=== PATIENT | male | born 1970 | race Caucasian/White ===

== ENCOUNTER 2019-06-17 11:12 | Outpatient (CLI) | payer OTHER, SELFPAY ==
--- NOTE | 2019-06-17 11:22 | XR_ITS ---
WS: [id number] CERVICAL SPINE 3 VIEWS HISTORY: MUSCLE SPASM, CERVICAL RADICULOPATHY, MUSCLE STRAIN COMPARISON: 10/06/2009 C4 and C5 retrolisthesis by just less than 2 mm. Mild disc space narrowing at C4-5, C5-6 and C6-7 wit h endplate osteophytes. No fractures. Bilateral masses of C1 and C2 are aligned odontoid is intact. Soft tissues are normal. XR/XR cervical spine 3V* [id number] IMPRESSION: 1. Minimal retrolisthesis of C4 and C5 with spondylitic changes and osteophyte s most significant at C4, C5 and C6. 2. No fracture.
== END 2019-06-17 11:13 | disposition home or self-care (01) ==
LOC: RADWPI 11:17
PROVIDERS: Family Provider Family Medicine; PCP Family Medicine; Visit Provider Family Medicine
DX: M62.838 Other muscle spasm (principal); M54.12 Radiculopathy, cervical region; M70.90 Unspecified soft tissue disorder related to use, overuse and pressure of unspecified site; M47.892 Other spondylosis, cervical region
CPT/HCPCS: 72040

== ENCOUNTER 2019-06-28 12:17 | Emergency (ER) | payer OTHER, SELFPAY ==
[2019-06-28 12:23] VITALS: BP 151/106; PULSE 101; RESP 16; TEMP 36.8; O2SAT 94; BMI 36.3
--- NOTE | 2019-06-28 12:41 | CT_ITS ---
WS: [id number] CT CERVICAL SPINE HISTORY: right arm radiculopathy, neck pain TECHNIQUE: Contiguous 2.5 mm axial imaging performed through the entire cervical spine. Sagittal and coronal reformats also performed. All CT scans at [facility] use at least one of these do se optimization techniques: automated exposure control; mA and/or kV adjustment per patient size (inc ludes targeted exams where dose is matched to clinical indication); or iterative reconstruction. DLP: 608.1 mGy.cm COMPARISON: 10/21/2007 C4 retrolisthesis by 2 mm. Small osteophytes extend posteriorly from C4 to C6. No fractures. Mild dis c space narrowing at C4-5 and C5-6. Craniocervical junction is normal. Lateral masses of C1 and C2 ar e aligned. Odontoid is intact. C2-C3: Shallow central disc protrusion. C3-C4: No stenosis. C4-C5: Osteophytic ridging encroaching upon the ventral thecal sac. Slightly greater osteophyte just to the LEFT of midline with moderate bilateral foraminal stenosis and central stenosis. C5-C6: Osteophytic ridging larger osteophyte on the RIGHT. Severe RIGHT foraminal stenosis and osteop hyte encroaching upon the RIGHT lateral thecal sac. C6-C7: Normal. C7-T1: Normal. Small air-fluid level in the LEFT maxillary sinus. CT/CT cervical spin wo con* [id number] IMPRESSION: 1. Severe RIGHT foraminal stenosis at C5-6 due to osteophyte disease. Mild enc roachment upon the ventral thecal sac. 2. Moderate bilateral foraminal stenosis and central stenosis at C4-5.
--- NOTE | 2019-06-28 12:42 | XR_ITS ---
WS: [id number] RIGHT SHOULDER: 2 VIEW(S) TECHNIQUE: Internal and external rotation. HISTORY: anterior shoulder pain COMPARISON: None available. Mild narrowing of the AC joint. Subcortical cyst in the distal clavicle. Mild narrowing of the glenohumeral joint with osteophytes at the humeral head. XR/XR shoulder RT min 2V* [id number] IMPRESSION: Mild AC joint and glenohumeral joint arthritis.
--- NOTE | 2019-06-28 12:53 | ED_ITS ---
HPI - General Adult General: Chief complaint: General Medical Stated complaint: Neck and right arm pain Time Seen by Provider: 06/28/19 12:25 History of Present Illness: HPI narrative: Patient is having radicular symptoms in his right arm. Did have a crick in his neck 2 weeks ago woke up with that went to Dr. Viveros's office got pain medicines and steroids. Neck pain is proved but his arm pain is not improved. Has went through Percocet and hydrocodone. And a muscle relaxer. Dr. Chirinos sent him over here today for evaluation because he has no other options for him presently. Patient does have what appear to be carpal tunnel type symptoms after further review MD complaint: Carpal tunnel right Onset (ago): week(s) Location: right and upper extremity Radiation: proximal Severity: severe Severity scale (1-10): 8 Quality: burning and aching Pain Consistency: constant Relieving factors: rest Exacerbating factors: movement Associated symptoms: Reports no associated symptoms; Deny chest pain, dyspnea, headache(s), nausea, rash or vomiting Review of Systems Narrative: I spoke with Dr. 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.) and muscle weakness (Right arm); Denies: neck pain (Neck did hurt originally but does not hurt now.) Skin/Breast: Denies: rash Neuro: Denies: headache Psych: Denies: anxiety or depression Semaj/Lymph: Denies: easy bruising PFSH ED PFSH: Social History Smoking and tobacco status: never smoked Physical Exam Const: COMMON NORMALS: no apparent distress, average body habitus and oriented x3 HENMT: COMMON NORMALS: normocephalic HEAD & SCALP: normal to inspection and normocephalic FACE & SINUS: normal facial exam Eye: COMMON NORMALS: conjunctivae normal GENERAL EYE: normal appearance of both eyes CONJUNCTIVA: Yes conjunctivae normal Neck/C-Spine: COMMON NORMALS: full ROM (Has good range of motion of his neck no tenderness to the scapula area or trapezius. Does have some pain in his anterior shoulder.) and no JVD Chest: COMMONS NORMALS: inspection of chest normal Resp: COMMON NORMALS: normal respiratory effort and clear to auscultation bilaterally AUSCULTATION: clear to auscultation bilaterally Cardio: COMMON NORMALS: no JVD, regular rate and regular rhythm RATE: regular rate RHYTHM: regular rhythm GI: COMMON NORMALS: normal to inspection, nondistended, normoactive bowel sounds Extremity: COMMON NORMALS: normal to inspection and full ROM Neuro: COMMON NORMALS: oriented x3 MOTOR EXAM: other (Tinel's and Phalen's positive on the right side for pain and increased numbness of the thumb and forefinger.) Course Vital Signs: Vital signs: Vital Signs Temperature 98.2 F 06/28/19 12:23 Pulse Rate 101 H 06/28/19 12:23 Respiratory Rate 16 06/28/19 12:23 Blood Pressure 151/106 06/28/19 12:23 Pulse Oximetry 94 06/28/19 12:23 Discharge Plan Discharge Condition: Stable Prescriptions: No Action phentermine [Adipex-P] 37.5 mg tablet 37.5 mg PO ONCE Qty: 30 RF: 0 Coding Level of Care Code ED Gas Distribution Supervisor for Keith Monique
[2019-06-28 14:04] VITALS: BP 122/91; PULSE 90; RESP 18; O2SAT 98
== END 2019-06-28 14:05 | disposition home or self-care (01) ==
LOC: ER 13:31
PROVIDERS: Emergency Provider Nurse Practitioner Family; Family Provider Family Medicine; PCP Family Medicine
DX: M48.02 Spinal stenosis, cervical region (principal); G56.01 Carpal tunnel syndrome, right upper limb
CPT/HCPCS: 12345; 72125; 73030; 99281; 99283

== ENCOUNTER → 2020-07-04 12:38 | Outpatient (BNVA) | payer BC, SELFPAY | PROVIDERS: Family Provider Family Medicine; PCP Family Medicine; Visit Provider Nurse Practitioner Family | DX: Z20.822 Contact with and (suspected) exposure to COVID-19 (principal) | CPT/HCPCS: 87635 ==

== ENCOUNTER → 2020-10-14 13:37 | Outpatient (BNVA) | payer BC, SELFPAY | PROVIDERS: Family Provider Family Medicine; PCP Family Medicine; Referring Provider Family Medicine; Visit Provider Specialist | DX: R20.0 Anesthesia of skin (principal); G56.03 Carpal tunnel syndrome, bilateral upper limbs | CPT/HCPCS: 73110 ==

== ENCOUNTER → 2020-10-20 14:09 | Outpatient (BNVA) | payer BC, SELFPAY | PROVIDERS: Family Provider Family Medicine; PCP Family Medicine; Visit Provider Specialist | DX: G56.21 Lesion of ulnar nerve, right upper limb (principal); G56.02 Carpal tunnel syndrome, left upper limb | CPT/HCPCS: 95910 ==

== ENCOUNTER → 2020-10-28 09:18 | Outpatient (BNVA) | payer BC, SELFPAY | PROVIDERS: Family Provider Family Medicine; PCP Family Medicine; Referring Provider Specialist; Visit Provider Specialist | DX: G56.21 Lesion of ulnar nerve, right upper limb (principal); G54.0 Brachial plexus disorders | CPT/HCPCS: 95860; 99202 ==

== ENCOUNTER → 2020-11-25 15:27 | Outpatient (BNVA) | payer BC, SELFPAY | PROVIDERS: Family Provider Family Medicine; PCP Family Medicine; Visit Provider Podiatrist Foot & Ankle Surgery | DX: M79.672 Pain in left foot (principal) | CPT/HCPCS: 73630 ==

== ENCOUNTER → 2021-01-07 11:20 | Outpatient (BNVA) | payer BC, SELFPAY | PROVIDERS: Family Provider Family Medicine; PCP Family Medicine; Visit Provider Nurse Practitioner Family | DX: Z20.822 Contact with and (suspected) exposure to COVID-19 (principal) | CPT/HCPCS: 87635 ==

== ENCOUNTER 2021-03-06 00:11 | Emergency (ER) | payer BC, SELFPAY ==
[2021-03-06 00:12] VITALS: BP 156/99; PULSE 98; RESP 18; TEMP 36.2; O2SAT 100; BMI 38.2
--- NOTE | 2021-03-06 00:15 | ECG_ITS ---
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 Measurements Intervals [place] Rate: 95 P: 9 ND: 145 QRS: 7 QRSD: 97 T: 45 QT: 349 QTc: 439 Interpretive Statements SINUS RHYTHM Compared to ECG 01/13/2015 12:48:31 No significant changes Electronically Signed On 03-06-2021 7:35:03 FILM MOUNTER by Estrada Mujica M.D. [id number]
--- NOTE | 2021-03-06 00:15 | XRR_ITS ---
PROCEDURE INFORMATION: Exam: XR Chest Exam date and time: 03/06/2021 12:15 AM Age: 50 years old Clinical indication: Chest pressure; Patient HX: Left sided chest pain. ; Additional info: Cp TECHNIQUE: Imaging protocol: XR of the chest. Views: 1 view. COMPARISON: CR Chest 1 [place] [id number] 01/13/2015 1:13 PM FINDINGS: Lungs: Unremarkable. No consolidation. Pleural spaces: Unremarkable. No pleural effusion. No pneumothorax. Heart/Mediastinum: Unremarkable. No cardiomegaly. Bones/joints: Unremarkable. XR/XR chest 1V portable [id number] IMPRESSION: No acute findings.
--- NOTE | 2021-03-06 00:24 | W.ED.CHESTPA ---
HPI - Chest Pain General: Chief Complaint: Chest Pain Stated Complaint: Chest Pains Time Seen by Provider: 03/06/21 00:15 Source: patient Mode of arrival: ambulatory Limitations: no limitations History of Present Illness: HPI narrative: 50-year-old male states has been having chest pain throughout the day. States it started at 10:00, a burning sensation in his chest that radiates to his left shoulder and some shortness of breath with this as well. He denies any history of heart disease he is not a smoker denies having any high blood pressure high cholesterol or diabetes. States he had 4-5 episodes throughout the day that lasted a few minutes denies any worsening or improving factors denies any worsening with exertion. 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[employer] and did just recently returned from [place] [employer] a week ago with a long flight Associated symptoms: Reports dyspnea; Deny abdominal pain, fever(s), nausea or vomiting Review of Systems Const: Denies: fever(s), chills, body aches or change in appetite Eyes: Denies: blurry vision or eye discomfort ENMT: Denies: throat pain or dental pain Card: Reports: chest pain Resp: Reports: dyspnea GI: Denies: abdominal pain, nausea, vomiting or diarrhea : Denies: dysuria Musc: Denies: neck pain or back pain Skin/Breast: Denies: rash Neuro: Denies: headache(s) Psych: Denies: depression Semaj/Lymph: Denies: easy bruising All/Imm: Denies: urticaria PFSH ED PFSH: Social History Alcohol intake: never Physical Exam Const: COMMON NORMALS: no acute distress, patient oriented x3 and healthy appearing HENMT: COMMON NORMALS: normocephalic and atraumatic HEAD & SCALP: normocephalic and atraumatic Eye: COMMON NORMALS: Equal, round and reactive pupils present and EOMs intact bilaterally PUPIL: Yes Equal, round and reactive pupils present Neck/C-Spine: COMMON NORMALS: full ROM and supple Chest: COMMONS NORMALS: normal inspection of the chest and normal palpation of entire chest wall Resp: COMMON NORMALS: normal respiratory effort, No retractions, No use of accessory muscles and clear to auscultation bilaterally AUSCULTATION: clear to auscultation bilaterally Cardio: COMMON NORMALS: regular rate, regular rhythm and No murmurs present (Cardio) RATE: regular rate RHYTHM: regular rhythm GI: COMMON NORMALS: Normal to inspection, nondistended, normoactive bowel sounds present, Soft to palpation, non-tender and no masses PALPATION: Yes Soft to palpation Extremity: COMMON NORMALS: normal to inspection and full ROM Neuro: COMMON NORMALS: patient oriented x3, moves all extremities and no focal motor deficits Psych: COMMON NORMALS: mental status grossly normal, Normal thought process present and cooperative THOUGHT PROCESS: Normal thought process present Skin: COMMON NORMALS: no rashes or lesions noted and no wounds GENERAL SKIN EXAM: no rashes or lesions noted Course Vital Signs: Vital signs: Vital Signs Temperature 97.1 F L 03/06/21 00:12 Pulse Rate 76 03/06/21 01:47 Respiratory Rate 18 03/06/21 00:12 Blood Pressure 156/109 03/06/21 01:47 Pulse Oximetry 93 03/06/21 01:47 MDM - Chest Pain MDM Narrative: Medical decision making narrative: Patient presents here with chest pain is atypical in nature. Patient's initial repeat troponins all EKG are all normal D-dimer is negative as well with no signs of pulmonary embolism or dissection is been pain-free here. We will get him follow-up with cardiology and he is return if worsening he understands agrees the plan. Lab Data: Labs: Lab Results 03/06/21 03/06/21 03/06/21 00:25 00:25 00:25 WBC 9.0 10^3/uL 10^3/ uL (4.0-10.0) RBC 5.40 10^6/uL H 10 ^6/uL (4.1-5.3) Hgb 16.1 g/dL g/dL (11.7-16.6) Hct 48.7 % % (42.0-52.0) MCV 90.2 fl fl (80-94) MCH 29.8 pg pg (28.0-34.0) MCHC 33.1 g/dL g/dL (30.0-36.0) RDW 15.0 % % (12.1-15.1) Plt Count 283 10^3/cmm 10^3 /cmm (130-400) MPV 10.8 fL H fL (7.4-10.4) Neut % (Auto) 66.5 % % Lymph % (Auto) 21.3 % % [place] % (Auto) 11.5 % % Eos % (Auto) 0.1 % % Baso % (Auto) 0.4 % % Neut # (Auto) 5.99 10^3/uL 10^3 /uL (1.8-7.7) Lymph # (Auto) 1.9 10^3/uL 10^3/ uL (0.8-4.8) [place] # (Auto) 1.0 10^3/uL H 10^ 3/uL (0.2-0.9) Eos # (Auto) 0.0 10^3/uL 10^3/ uL (0.0-0.8) Baso # (Auto) 0.0 10^3/uL 10^3/ uL (0.0-0.1) Nucleated RBC % (a uto) 0 % % Nucleated RBCs # 0.0 /100WBC /100W BC D-Dimer Sodium 139 mmol/L mmol/L (136-145) Potassium 4.1 mmol/L mmol/L (3.5-5.1) Chloride 102 mmol/L mmol/L (98-107) Carbon Dioxide 23 mmol/L mmol/L (22-29) Anion Gap 18.1 (5-19) BUN 17 mg/dL mg/dL (6-20) Creatinine 0.7 mg/dL mg/dL (0.7-1.2) GFR Calculation 118.4 mL/min mL/m in (90-130) Glucose 106 mg/dL mg/dL (65-115) Calculated Osmolal ity 290 mOsm/kg mOsm/ kg (285-295) Calcium 8.7 mg/dL mg/dL (8.5-10.5) Total Bilirubin 0.2 mg/dL mg/dL (0.15-1.2) AST 18 U/L U/L (0-40) ALT 18 U/L U/L (0-41) Alkaline Phosphata se 98 IU/L IU/L (40-130) Troponin T Baselin e 6 ng/L ng/L (0-15) Troponin T 120 Min [place] Troponin T Total Protein 6.9 g/dL g/dL (6.6-8.7) Albumin 4.5 g/dL g/dL (3.5-5.2) Globulin 2.4 g/dL g/dL (1.3-4.6) 03/06/21 03/06/21 00:25 02:26 WBC RBC Hgb Hct MCV MCH MCHC RDW Plt Count MPV Neut % (Auto) Lymph % (Auto) [place] % (Auto) Eos % (Auto) Baso % (Auto) Neut # (Auto) Lymph # (Auto) [place] # (Auto) Eos # (Auto) Baso # (Auto) Nucleated RBC % (a uto) Nucleated RBCs # D-Dimer 0.47 ug/mIFEU ug/ mIFEU (0-0.59) Sodium Potassium Chloride Carbon Dioxide Anion Gap BUN Creatinine GFR Calculation Glucose Calculated Osmolal ity Calcium Total Bilirubin AST ALT Alkaline Phosphata se Troponin T Baselin e Troponin T 120 Min [place] 6.00 ng/L ng/L (0-15) Delta Troponin T 0 ABS# ABS# (0-10) Total Protein Albumin Globulin Imaging Data^: CXR: Attestation: I personally reviewed and interpreted this imaging study as follows: My impression: no acute abnormality EKG Data^: EKG 1: Attestation: I personally reviewed and interpreted this EKG as follows: EKG interpretation date: 03/06/21 EKG interpretation time: 00:16 Interpretation: nsr hr [address] or t wave abnormalities qrs 97 qtc 401 EKG 2: Attestation: I personally reviewed and interpreted this EKG as follows: EKG interpretation date: 03/06/21 EKG interpretation time: 02:10 Interpretation: nsr hr [address] or t wave abnormalities qrs 99 qtc 408 Discharge Plan Discharge Patient Disposition: Home Clinical Impression: Chest pain Condition: Stable Prescriptions: No Action allopurinol 100 mg tablet 100 mg PO DAILY RF: 0 tamsulosin 0.4 mg capsule 0.4 mg PO DAILY RF: 0 Discharge Orders: Discharge ED (Routine); Ordered 03/06/21 Ordered By: Yolanda Sheppard Referrals: Jose Manuel Mendoza MD [Physician] - 1-3 days Sagar Gibson DO [Primary Care Provider] - Discharge Diet: Advance as tolerated Discharge Activity: Resume usual activity Patient Instructions: Chest Pain (ED) Coding Level of Care Code ED Remote Sensing Advisor for Chg Fwd Exam Comprehensive
[2021-03-06 00:30] LABS: Basophils % 0.4 %; Eosinophils % 0.1 %; Hematocrit 48.7 % (42.0-52.0); Hemoglobin 16.1 g/dL (11.7-16.6); Lymphocytes # 1.9 10^3/uL (0.8-4.8); Lymphocytes % 21.3 %; Mean Corpuscular HGB Conc 33.1 g/dL (30.0-36.0); Mean Corpuscular Hemoglobin 29.8 pg (28.0-34.0); Mean Corpuscular Volume 90.2 fl (80-94); Mean Platelet Volume 10.8 fL (7.4-10.4); Monocytes % 11.5 %; Neutrophils # 5.99 10^3/uL (1.8-7.7); Neutrophils % 66.5 %; Nucleated Red Blood Cells % 0 %; Platelet Count 283 10^3/cmm (130-400)
[2021-03-06 00:45] LABS: D Dimer 0.47 ug/mIFEU (0-0.59)
[2021-03-06 00:51] LABS: Alanine Aminotransferase 18 U/L (0-41); Albumin Level 4.5 g/dL (3.5-5.2); Alkaline Phosphatase 98 IU/L (40-130); Anion Gap 18.1 (5-19); Aspartate Amino Transferase 18 U/L (0-40); Blood Urea Nitrogen 17 mg/dL (6-20); Calcium 8.7 mg/dL (8.5-10.5); Carbon Dioxide 23 mmol/L (22-29); Chloride 102 mmol/L (98-107); Globulin 2.4 g/dL (1.3-4.6); Glomerular Filtration Rate 118.4 mL/min (90-130); Glucose 106 mg/dL (65-115); Osmolality Calculated 290 mOsm/kg (285-295); Potassium 4.1 mmol/L (3.5-5.1); Sodium 139 mmol/L (136-145); Total Bilirubin 0.2 mg/dL (0.15-1.2); Total Protein 6.9 g/dL (6.6-8.7)
[2021-03-06 00:52] LABS: Troponin(5th) Baseline 6 ng/L (0-15)
[2021-03-06 01:47] VITALS: BP 156/109; PULSE 76; O2SAT 93
[2021-03-06 02:47] LABS: Troponin 5 2HR Delta 0 ABS# (0-10)
[2021-03-06 02:58] VITALS: BP 140/104; PULSE 77; O2SAT 96
--- NOTE | 2021-03-09 07:34 | DCPLANNER ---
manager of applications development had message to schedule a follow up appointment for patient with [facility]. manager of applications development called [facility], spoke with Any Blackman, gave clinic patients information. A follow up appointment was scheduled for Tuesday, March 23, 2021 at 2:[address] Mendoza. manager of applications development called phone number [phone], unable to speak with patient at this time, a voicemail was left for patient to return rehabilitation case coordinator call for appointment information.
--- NOTE | 2021-03-11 15:38 | DCPLANNER ---
casino cage manager called patient and gave him the appointment information for appointment scheduled with [facility]. Patient stated that he would attend appointment.
--- NOTE | 2021-03-25 15:29 | DCPLANNER ---
Patient had a follow up appointment scheduled for 03.23.21 at [facility] - patient did attend appointment.
== END 2021-03-06 03:05 | disposition home or self-care (01) ==
PROVIDERS: Emergency Provider Emergency Medicine; PCP Family Medicine
DX: R07.9 Chest pain, unspecified (principal)
CPT/HCPCS: 71045; 80053; 84484; 85025; 85378; 93005; 99283

== ENCOUNTER → 2021-09-02 09:52 | Outpatient (BNVA) | payer OTHER, SELFPAY | PROVIDERS: PCP Family Medicine; Visit Provider Internal Medicine | DX: K22.70 Barrett's esophagus without dysplasia (principal); R19.7 Diarrhea, unspecified; D64.9 Anemia, unspecified; M79.673 Pain in unspecified foot; R20.8 Other disturbances of skin sensation; R53.83 Other fatigue; R07.89 Other chest pain; R03.0 Elevated blood-pressure reading, without diagnosis of hypertension; G47.30 Sleep apnea, unspecified; G56.02 Carpal tunnel syndrome, left upper limb; G54.0 Brachial plexus disorders | CPT/HCPCS: 80053; 82607; 82746; 83036; 83550; 84443; 85025 ==

== ENCOUNTER 2022-08-25 06:35 | Outpatient (CLI) | payer OTHER, SELFPAY ==
--- NOTE | 2022-08-25 | ECG_ITS ---
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 Interpretive Statements NAME OF STUDY: LEXISCAN SESTAMIBI STRESS TEST INDICATION: Radiating CP PROCEDURE: At the baseline, the blood pressure was 134/85 mmHg with a heart rate of 72 bpm. The electrocardiogram showed sinus rhythm, normal axis with nonspecific T wave inversion in lead III. The Lexiscan was infused over a period of 20 seconds. A total of 0.4 milligrams of Lexiscan was infused. The stress phase was continued for a total of 5 minutes. Heart rate at the end of the stress phase was 82 bpm with a blood pressure of 129/86 mmHg. The EKG at the peak infusion revealed no significant ST-T wave changes. Sestamibi was injected 20 seconds after the Lexiscan infusion. Blood pressure at the end of the recovery phase was 133/86 mmHg with a heart rate of 81 beats per minute. CONCLUSION: 1. No significant EKG changes with the LexiScan infusion. 2. No LexiScan induced chest pain or cardiac arrhythmia. 3. Normal blood pressure and heart rate response. 4. Sestamibi/sestamibi perfusion scan pending; see separate report. Electronically Signed On 09-02-2022 14:23:03 CDT by Nancy Welch M.D. [id number]
[2022-08-25 06:49] VITALS: BMI 37.9
--- NOTE | 2022-08-25 06:53 | NMCV_ITS ---
NM elaine perf SPECT r/s* 14500 Tom Pérez Age: 51 Gender: M : 1970 Exam Date: 08/25/2022 06:53 Ordering Phys: Hieu Simon NP Technologist: SONIDO Mahoney Exam Location: [facility] Indications: CHEST PAIN STRESS TEST [facility] IMAGE PROTOCOL Rest/Stress 1 Lexiscan Day Radiopharmaceutical Dose (mCi) Administration Site Administered by Rest: Tc-99m 10.9 IV SONIDO Meng Sestamibi Stress:Tc-99m 32.6 IV SONIDO Meng Sestamibi Rest: 25-Aug-2022 60 Discovery 630 Stress: 25-Aug-2022 30 Discovery 630 0.4mg Lexiscan. Images obtained in supine and prone position. SPECT RESULTS Technical Quality: Excellent Raw Data Analysis: Normal Image Corrections: No attenuation or motion correction applied Summed Stress Score: 1 Summed Rest Score: 11 Summed Difference Score: 0 PERFUSION FINDINGS SPECT images demonstrate homogeneous tracer distribution throughout the myocardium. FUNCTIONAL RESULTS (calculated via Gated SPECT) Stress Image LV EF (%): 71 Stress EDV (mL):85 TID: 0 Stress ESV (mL):25 FUNCTIONAL FINDINGS: The left ventricle is normal in size. Transient Ischemia Dilatation of 0. The left ventricular ejection fraction is normal with a value of 71%. There is normal left ventricular wall thickening. IMPRESSIONS 1. Myocardial perfusion imaging is normal. 2. Overall left ventricular systolic function is normal without regional wall motion abnormalities, LVEF=71%. 3. EKG portion of the study will be reported separately. 4. Scan indicates low risk for cardiac events. Nancy Welch MD (Electronically Signed) Final Date: 03 September 2022 10:58 S
[2022-08-25] MEDS: regadenoson 0.4 Mg/5 ml Syringe IVP (08:09)
[2022-08-25 08:13] VITALS: BP 133/86; PULSE 80
== END 2022-08-25 06:36 | disposition home or self-care (01) ==
LOC: CDL 06:36
PROVIDERS: PCP Family Medicine; Visit Provider Clinical Nurse Specialist Adult Health
DX: R07.89 Other chest pain (principal)
CPT/HCPCS: 36415; 78452; 93017; 96374; A9500; J2785

== ENCOUNTER → 2022-09-08 08:21 | Outpatient (BNVA) | payer OTHER, SELFPAY | PROVIDERS: PCP Family Medicine; Visit Provider Family Medicine | DX: K91.2 Postsurgical malabsorption, not elsewhere classified (principal); D64.9 Anemia, unspecified | CPT/HCPCS: 80053; 80061; 82306; 82607; 82728; 83036; 83540; 83735; 84425; 84443; 84630; 85025 ==

== ENCOUNTER 2022-11-18 12:07 | Outpatient (CLI) | payer OTHER, SELFPAY ==
--- NOTE | 2022-11-18 12:45 | US_ITS ---
WS: [id number] RENAL ULTRASOUND HISTORY: 1.2 x 2.0 cm hyperdense lesion in r kidney hyperdense lesion was noted on a prior outside CT that is not available for review. COMPARISON: None available. TECHNIQUE: 2-D and color Doppler imaging of the kidney submitted. Right kidney: 10.8 cm x 5.3 cm x 5.9 cm. Cortex: 1.6 cm Normal size RIGHT kidney. There is very mild cortical thickening of the mid to lower pole of the RIGH T kidney but no definite mass or increased vascularity. Left kidney: 11.6 cm x 5.5 cm x 7.1 cm. Cortex: 1.2 cm Simple cyst LEFT mid kidney measures 4.0 x 3.5 x 3.5 cm. Aorta: Normal. Urinary Bladder: Normal distention. IMPRESSION: 1. No solid mass is definitely identified within the RIGHT kidney. There is very mild prominence of t he RIGHT renal cortex but this may be a normal variant. There is no increased vascularity or change i n echogenicity. Consider MRI or CT evaluation by renal mass protocol which would include with and wit hout contrast evaluation. 2. Simple cyst LEFT kidney maximum diameter 4.0 cm.
== END 2022-11-18 12:08 | disposition home or self-care (01) ==
PROVIDERS: PCP Family Medicine; Visit Provider Family Medicine
DX: N28.89 Other specified disorders of kidney and ureter (principal)
CPT/HCPCS: 76770

== ENCOUNTER 2022-12-02 03:14 | Emergency (ER) | payer OTHER, SELFPAY ==
[2022-12-02 03:26] VITALS: BP 163/106; PULSE 91; RESP 22; TEMP 36.4; O2SAT 97; BMI 38.7
--- NOTE | 2022-12-02 03:37 | ECG_ITS ---
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 Measurements Intervals [place] Rate: 94 P: 12 NC: 161 QRS: 5 QRSD: 105 T: 30 QT: 376 QTc: 471 Interpretive Statements SINUS RHYTHM Compared to ECG 03/06/2021 00:16:51 No significant changes Electronically Signed On 12-02-2022 17:20:22 CDT by Jose Manuel Mendoza M.D. [id number] f
--- NOTE | 2022-12-02 03:37 | XRR_ITS ---
PROCEDURE INFORMATION: Exam: XR Chest Exam date and time: 12/02/2022 3:42 AM Age: 52 years old Clinical indication: Other: Anxious/numbness RT arm; Other: Neck and head paim; Patient HX: PT woke up with neck and head pain, numbness in right arm, says he woke up anxious/nervous, non smoker/no HX cancer; Additional info: Chest pain TECHNIQUE: Imaging protocol: Radiologic exam of the chest. Views: 1 view. COMPARISON: No relevant prior studies available. FINDINGS: Lungs: Unremarkable. No consolidation. Pleural spaces: Unremarkable. No pleural effusion. No pneumothorax. Heart/Mediastinum: Unremarkable. No cardiomegaly. Bones/joints: Cervical fixation hardware is partially imaged.. XR/XR chest 1V portable [id number] IMPRESSION: No acute findings.
--- NOTE | 2022-12-02 03:40 | ED_ITS ---
HPI - General Adult General: Chief complaint: General Medical Stated complaint: Anxiety\Something Wrong Time Seen by Provider: 12/02/22 03:28 History of Present Illness: Patient presents to the ER with just complaints of not feeling well. Patient said he woke up from sleep feeling anxious and nervous, like he is about to have a panic attack. This is often on his extremities go numb he is having breathing issues off and on has been having sharp substernal cardiac pains off and on for several days. Patient does not have a history of having anxiety, panic attacks or any cardiac issues. Patient just keeps saying he does not know how to explain it but he does feel something is not right. Review of Systems General: Reports: 10 or more systems reviewed and unremarkable except in HPI and below PFSH ED PFSH: Medical History Allergies B12 deficiency Carpal tunnel syndrome Diverticulosis Hypogonadism Obesity ELVER (obstructive sleep apnea) Postoperative malabsorption Surgical History History of cataract extraction with lens replacement History of cervical spinal surgery History of laparoscopic adjustable gastric banding History of Bong fundoplication History of Brittani-en-Y gastric bypass History of sinus surgery Family History Father Anesthesia complication Cancer nonhodgkin's lymphoma Grandfather CAD (coronary artery disease) Grandmother CAD (coronary artery disease) Stroke Grandfather CAD (coronary artery disease) Stroke Grandmother CAD (coronary artery disease) Mother Cancer unknown Family/Other Suicide Denies family history of Diabetes Clotting disorder Dementia Chronic kidney disease (CKD) Bleeding disorder Lung disease Social History Smoking and tobacco status: never smoked Alcohol intake: current Alcohol intake frequency: few times a week Alcohol type: beer and hard liquor Substance/Drug Use: never Lives independently: Yes Household members: none Marital status: Number of children: 3 Number of grandchildren: 6 service: Yes status: Retired branch: [employer] Current occupational status: employed 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 [employer] Special reina needs: No Agree to transfusion: Yes Physical Exam Const: COMMON NORMALS: no acute distress, average body habitus, patient oriented x3, no limitations, healthy appearing, alert and well nourished HENMT: COMMON NORMALS: normocephalic, atraumatic, hearing grossly normal bilaterally, external ears normal, Normal external nose present and moist oral mucous membranes HEAD & SCALP: normocephalic and atraumatic NOSE: Normal external nose present EXTERNAL EAR: Yes external ears normal Eye: COMMON NORMALS: Equal, round and reactive pupils present, EOMs intact bilaterally, conjunctivae normal and no scleral icterus CONJUNCTIVA: Yes conjunctivae normal PUPIL: Yes Equal, round and reactive pupils present Neck/C-Spine: COMMON NORMALS: full ROM, no lymphadenopathy, supple, no meningeal signs, no JVD and Thyroid normal THYROID: Thyroid normal Chest: COMMONS NORMALS: normal inspection of the chest and normal palpation of entire chest wall Resp: COMMON NORMALS: normal respiratory effort, No retractions, No use of accessory muscles and clear to auscultation bilaterally AUSCULTATION: clear to auscultation bilaterally Cardio: COMMON NORMALS: no JVD, regular rate, regular rhythm, S1 normal heart sound present, S2 normal heart sound present, No gallops present (Cardio), No clicks present (Cardio), No murmurs present (Cardio) and No rub (Cardio) RATE: regular rate RHYTHM: regular rhythm HEART SOUNDS: S1 normal heart sound present and S2 normal heart sound present GI: COMMON NORMALS: Normal to inspection, nondistended, normoactive bowel sounds present, Soft to palpation, non-tender, No hepatosplenomegaly present, no masses and no bruits PALPATION: Yes Soft to palpation and Yes No hepatosplenomegaly present : COMMON NORMALS: Yes no CVA tenderness BLADDER/KIDNEY EXAM: Yes no CVA tenderness Back/Pelvis: COMMON NORMALS: no CVA tenderness Neuro: COMMON NORMALS: patient oriented x3 SENSORIUM/ORIENTATION: Yes alert MENINGEAL SIGNS: Yes no meningeal signs Course Vital Signs: Vital signs: Vital Signs Temperature 97.5 F L 12/02/22 03:26 Pulse Rate 86 12/02/22 05:33 Respiratory Rate 13 12/02/22 05:33 Blood Pressure 152/131 12/02/22 05:33 Pulse Oximetry 96 12/02/22 05:33 Oxygen Delivery Me thod Room Air 12/02/22 03:26 [facility] - General Adult Medical Decision Making Patient presents to the ER with complaints that sound like anxiety with a panic attack and intermittent chest pain for several days. Patient was worked up in normal chest pain fashion which included serial EKGs and serial lab work and chest x-ray. All of which we have back so far is benign. The 2-hour troponin is pending. If negative patient will be discharged home with a diagnosis of anxiety/panic attack and noncardiac chest pain. Patient should follow-up with his PCP within the next 7 days for further evaluation and testing. Differential Diagnosis Anxiety, panic attack, paresthesia, chest pain Medical Records I reviewed the patient's medical records. Lab Data I reviewed the patient's lab results. 12/02/22 03:34 12/02/22 03:34 Laboratory Results WBC 8.26 10^3/uL (3.29-11.43) 12/02/22 03:34 RBC 5.42 10^6/uL (3.85-5.65) 12/02/22 03:34 Hgb 16.10 g/dL (11.27-16.99) 12/02/22 03:34 Hct 48.5 % (37-53) 12/02/22 03:34 MCV 89.5 fl (82-101) 12/02/22 03:34 MCH 29.7 pg (27-33) 12/02/22 03:34 MCHC 33.2 g/dL (30-55) 12/02/22 03:34 RDW 13.4 % (12.1-15.1) 12/02/22 03:34 Plt Count 273 10^3/cmm (157-399) 12/02/22 03:34 MPV 10.8 fL (7.4-10.4) H 12/02/22 03:34 Neut % (Auto) 50.1 % 12/02/22 03:34 Lymph % (Auto) 37.2 % 12/02/22 03:34 [place] % (Auto) 9.9 % 12/02/22 03:34 Eos % (Auto) 2.1 % 12/02/22 03:34 Baso % (Auto) 0.5 % 12/02/22 03:34 Neut # (Auto) 4.14 10^3/uL (1.8-7.7) 12/02/22 03:34 Lymph # (Auto) 3.1 10^3/uL (0.8-4.8) 12/02/22 03:34 [place] # (Auto) 0.8 10^3/uL (0.2-0.9) 12/02/22 03:34 Eos # (Auto) 0.2 10^3/uL (0.0-0.8) 12/02/22 03:34 Baso # (Auto) 0.0 10^3/uL (0.0-0.1) 12/02/22 03:34 Nucleated RBC % (auto) 0 % 12/02/22 03:34 Nucleated RBCs # 0.0 /100WBC 12/02/22 03:34 Sodium 139 mmol/L (136-145) 12/02/22 03:34 Potassium 4.0 mmol/L (3.5-5.1) 12/02/22 03:34 Chloride 100 mmol/L (98-107) 12/02/22 03:34 Carbon Dioxide 25 mmol/L (22-29) 12/02/22 03:34 Anion Gap 18.0 (5-19) 12/02/22 03:34 BUN 12 mg/dL (6-20) 12/02/22 03:34 Creatinine 0.9 mg/dL (0.7-1.2) 12/02/22 03:34 GFR Calculation 87.9 mL/min (90-130) L 12/02/22 03:34 Glucose 94 mg/dL (65-115) 12/02/22 03:34 Calculated Osmolality 288 mOsm/kg (285-295) 12/02/22 03:34 Calcium 9.2 mg/dL (8.5-10.5) 12/02/22 03:34 Total Bilirubin 0.3 mg/dL (0.15-1.2) 12/02/22 03:34 AST 26 U/L (0-40) 12/02/22 03:34 ALT 26 U/L (0-41) 12/02/22 03:34 Alkaline Phosphatase 88 U/L (40-130) 12/02/22 03:34 Troponin T Baseline 7 ng/L (0-15) 12/02/22 03:34 Troponin T 120 Minute 6.75 ng/L (0-15) 12/02/22 05:17 Total Protein 7.4 g/dL (6.6-8.7) 12/02/22 03:34 Albumin 4.8 g/dL (3.5-5.2) 12/02/22 03:34 Globulin 2.6 g/dL (1.3-4.6) 12/02/22 03:34 EKG Data EKG 1: I personally reviewed and interpreted this EKG as follows: EKG interpretation date: 12/02/22 EKG interpretation time: 03:36 Prior EKG tracings: not available for review Interpretation: EKG shows ventricular rate 94 bpm, VA interval 161, QRS duration 105, QTc of 427, sinus rhythm with no ST-T wave changes Discharge Plan Discharge Patient Disposition: Home Clinical Impression: Anxiety, Chest pain, non-cardiac Condition: Stable Prescriptions: No Action cetirizine [Zyrtec] 10 mg tablet 10 mg PO DAILY PRN loratadine [Claritin] 10 mg tablet 10 mg PO DAILY dicyclomine 10 mg capsule 10 mg PO TID Qty: 90 0RF Discharge Orders: Discharge ED (Routine); Ordered 12/02/22 Ordered By: David Carmona Patient Instructions: Chest Pain - Noncardiac, Anxiety (ED) Activity Restrictions/Additional Instructions: Please follow-up with your family practice physician in the next 7 days for further evaluation and testing. 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
[2022-12-02 03:42] LABS: Basophils % 0.5 %; Eosinophils # 0.2 10^3/uL (0.0-0.8); Eosinophils % 2.1 %; Hematocrit 48.5 % (37-53); Lymphocytes # 3.1 10^3/uL (0.8-4.8); Lymphocytes % 37.2 %; Mean Corpuscular HGB Conc 33.2 g/dL (30-55); Mean Corpuscular Hemoglobin 29.7 pg (27-33); Mean Corpuscular Volume 89.5 fl (82-101); Mean Platelet Volume 10.8 fL (7.4-10.4); Monocytes # 0.8 10^3/uL (0.2-0.9); Monocytes % 9.9 %; Neutrophils # 4.14 10^3/uL (1.8-7.7); Neutrophils % 50.1 %; Nucleated Red Blood Cells % 0 %; Platelet Count 273 10^3/cmm (157-399); Red Blood Count 5.42 10^6/uL (3.85-5.65); Red Cell Distribution Width 13.4 % (12.1-15.1); White Blood Count 8.26 10^3/uL (3.29-11.43)
[2022-12-02] MEDS: LORazepam 2 mg/mL INJ 1 mL 1 MG IVP (03:45)
[2022-12-02 03:57] LABS: Troponin(5th) Baseline 7 ng/L (0-15)
[2022-12-02 04:00] VITALS: BP 140/100; PULSE 90; RESP 16; O2SAT 96
[2022-12-02 04:00] LABS: Alanine Aminotransferase 26 U/L (0-41); Albumin Level 4.8 g/dL (3.5-5.2); Alkaline Phosphatase 88 U/L (40-130); Aspartate Amino Transferase 26 U/L (0-40); Blood Urea Nitrogen 12 mg/dL (6-20); Calcium 9.2 mg/dL (8.5-10.5); Carbon Dioxide 25 mmol/L (22-29); Chloride 100 mmol/L (98-107); Creatinine Clr Calc Pharmacy 108.5946; Globulin 2.6 g/dL (1.3-4.6); Glomerular Filtration Rate 87.9 mL/min (90-130); Glucose 94 mg/dL (65-115); Osmolality Calculated 288 mOsm/kg (285-295); Sodium 139 mmol/L (136-145); Total Bilirubin 0.3 mg/dL (0.15-1.2); Total Protein 7.4 g/dL (6.6-8.7)
[2022-12-02 04:30] VITALS: BP 130/90; PULSE 87; RESP 16; O2SAT 96
[2022-12-02 05:00] VITALS: BP 152/97; PULSE 86; RESP 18; O2SAT 95
[2022-12-02 05:33] VITALS: BP 152/131; PULSE 86; RESP 13; O2SAT 96
[2022-12-02 06:02] LABS: Troponin 5 2HR 6.75 ng/L (0-15); Troponin 5 2HR Delta -0.25 ABS# (0-10)
--- NOTE | 2022-12-02 12:54 | DCPLANNER ---
catering operations manager was triggered to call patient due to no primary care physician - patient sees Mackenzie Cuevas at [facility].
== END 2022-12-02 05:59 | disposition home or self-care (01) ==
PROVIDERS: Emergency Provider Emergency Medicine; PCP Family Medicine
DX: F41.9 Anxiety disorder, unspecified (principal); R07.89 Other chest pain
CPT/HCPCS: 36415; 71045; 80053; 84484; 85025; 93005; 99285; J2060

== ENCOUNTER → 2024-02-16 13:11 | Outpatient (BNVA) | payer OTHER, SELFPAY | PROVIDERS: PCP Family Medicine; Visit Provider Family Medicine | DX: J02.9 Acute pharyngitis, unspecified (principal) | CPT/HCPCS: 87071; 87880 ==

== ENCOUNTER 2024-06-20 07:25 | Day surgery (SDC) | payer OTHER, SELFPAY ==
[2024-06-20 07:35] VITALS: BP 135/95; PULSE 82; RESP 16; TEMP 36.1; O2SAT 97; BMI 33.9
[2024-06-20] MEDS: sodium chloride 0.9% 1,000 ML 30 ML IV (07:44)
--- NOTE | 2024-06-20 07:56 | ANES.PREANE2 ---
Pre-Anesthetic Assessment Height/Weight: Height 5 ft 6 in Weight 210 lb Temp Pulse Resp BP Pulse Ox O2 Del Method 97.0 F L 82 16 135/95 97 Room Air 06/20/24 07:35 06/20/24 07:35 06/20/24 07:35 06/20/24 07:35 06/20/24 07:35 06/20/24 07:35 Preop Diagnosis: Screening colonoscopy Operation Date: 06/20/24 08:35 Proposed Procedures p Colonoscopy 94740 G0121 Z12.11(Not Applicable) - Lul Craft MD Was Beta Ottoniel taken within 24 hours: N/A Was Clonidine taken within 24 hours: N/A Last intake: Intake Last Liquid Date 06/19/24 Last Liquid Time 21:00 Last Solid Date 06/18/24 Last Solid Time 10:00 Social No alcohol and No tobacco Exam alert, oriented x 3, clear to auscultation bilaterally and regular rate & rhythm Airway Submandibular: within normal limits Cervical ROM: within normal limits Mallampati: Class II Dentition: full Anesthetic Plan ASA status: 2 Anesthesia: MAC Other: No prior issues with anesthesia Completed bowel prep Denies any cardiac or pulmonary issues History of ELVER, no treatment Prior renal mass on right kidney. This was removed last year. No further issues Prior EKG showing sinus rhythm METs greater than 4 Plan for MAC anesthesia Medications/Allergies Home Medications ?Medication ?Instructions ?Recorded ?Confirmed ?Last Taken ?Type No Known Home Medications 06/17/24 06/20/24 Unknown History Allergies Allergy/AdvReac Type Severity Reaction Status Date / Time allopurinol Allergy Severe hives Verified 06/20/24 07:32 Current Medications Generic Name Dose Route Start Last Admin Trade Name Freq PRN Reason Stop Dose Admin Sodium Chloride 1,000 mls @ 30 mls/hr 06/20/24 07:30 06/20/24 07:44 Sodium Chloride 0.9% IV 30 mls/hr .Q24H [place]ET[place] Administration PFSH Anesthesia Medical History Diverticulosis Postoperative malabsorption Obesity Carpal tunnel syndrome Allergies B12 deficiency ELVER (obstructive sleep apnea) Hypogonadism Surgical History History of sinus surgery History of laparoscopic adjustable gastric banding History of Brittani-en-Y gastric bypass History of cervical spinal surgery History of cataract extraction with lens replacement History of Bong fundoplication Family History Father Anesthesia complication Cancer nonhodgkin's lymphoma Grandfather CAD (coronary artery disease) Grandmother CAD (coronary artery disease) Stroke Grandfather CAD (coronary artery disease) Stroke Grandmother CAD (coronary artery disease) Mother Cancer unknown Family/Other Suicide Denies family history of Diabetes Clotting disorder Dementia Chronic kidney disease (CKD) Bleeding disorder Lung disease Social History Smoking and tobacco/nicotine status: never used tobacco/nicotine Alcohol intake: current Alcohol intake frequency: few times a week Alcohol type: beer and hard liquor Substance/Drug Use: never Lives independently: Yes Household members: none Marital status: Number of children: 3 Number of grandchildren: 6 service: Yes status: Retired branch: [employer] Current occupational status: employed 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
--- NOTE | 2024-06-20 08:44 | W.PM.OPSFHP ---
Same Day Surgery H&P Indication for Procedure/HPI DATE OF PROCEDURE: June 20, 2024 CHIEF COMPLAINT/INDICATIONFOR SURGICAL PROCEDURE: need for screening colonoscopy PREOP DIAGNOSIS: Screening colonoscopy PLANNED PROCEDURE: Operation Date: 06/20/24 08:35 Proposed Procedures p Colonoscopy [id number] G0121 Z12.11(Not Applicable) - Lul Craft MD Medications/Allergies* Home Medications ?Medication ?Instructions ?Recorded ?Confirmed ?Type No Known Home Medications 06/17/24 06/20/24 History Allergies/Adverse Reactions Allergy/AdvReac Type Severity Reaction Status Date / Time allopurinol Allergy Severe hives Verified 06/20/24 07:32 Current Medications: Generic Name Dose Route Start Last Admin Trade Name Freq PRN Reason Stop Dose Admin Sodium Chloride 1,000 mls @ 30 mls/hr 06/20/24 07:30 06/20/24 07:44 Sodium Chloride 0.9% IV 30 mls/hr .Q24H [place] Administration Pertinent History/Comorbid Conditions* Medical History (Updated 12/10/22 @ 00:02 by ANDRES Kiser) Diverticulosis Postoperative malabsorption Obesity Carpal tunnel syndrome Allergies B12 deficiency ELVER (obstructive sleep apnea) Hypogonadism Surgical History (Updated 09/08/22 @ 07:28 by Mackenzie Cuevas MD) History of sinus surgery History of laparoscopic adjustable gastric banding History of Brittani-en-Y gastric bypass History of cervical spinal surgery History of cataract extraction with lens replacement History of Bong fundoplication Family History (Updated 09/08/22 @ 07:30 by Mackenzie Cuevas MD) CAD (coronary artery disease) Grandfather Grandmother Grandfather Grandmother Suicide Family/Other Anesthesia complication Father Cancer Father nonhodgkin's lymphoma Mother unknown Stroke Grandmother Grandfather Denies family history of Diabetes Clotting disorder Dementia Chronic kidney disease (CKD) Bleeding disorder Lung disease Social History Smoking and tobacco/nicotine status: never used tobacco/nicotine Alcohol intake: current Alcohol intake frequency: few times a week Alcohol type: beer and hard liquor Substance/Drug Use: never Lives independently: Yes Household members: none Marital status: Number of children: 3 Number of grandchildren: 6 service: Yes status: Retired branch: [employer] Current occupational status: employed 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
[2024-06-20 09:18] VITALS: BP 118/83; PULSE 83; RESP 16; TEMP 36.2; O2SAT 95
[2024-06-20 09:29] VITALS: BP 130/83; PULSE 75; RESP 16; O2SAT 99
--- NOTE | 2024-06-20 09:46 | ANE.PACU2 ---
Inpatient post-anesthesia follow up: Airway intact: Yes Vital signs: Temperature 97.1 F Pulse Rate 75 Respiratory Rate 16 Blood Pressure 130/83 Pulse Oximetry 99 Oxygen Delivery Me thod Room Air Oxygen Flow Rate Fraction of Inspir ed Oxygen Hydration adequate: Yes Nausea and vomiting: No Pain level: 1 Mental status: Baseline
== END 2024-06-20 09:46 | disposition home or self-care (01) ==
PROVIDERS: PCP Family Medicine; Visit Provider Surgery
PROC: 0DJD8ZZ Inspection of Lower Intestinal Tract, Via Natural or Artificial Opening Endoscopic (ICD-10-PCS; CPT 45378; principal; 2024-06-20 08:35)
DX: Z12.11 Encounter for screening for malignant neoplasm of colon (principal); D12.3 Benign neoplasm of transverse colon; K63.5 Polyp of colon; K52.9 Noninfective gastroenteritis and colitis, unspecified; K57.30 Diverticulosis of large intestine without perforation or abscess without bleeding; Z88.8 Allergy status to other drugs, medicaments and biological substances; Z98.84 Bariatric surgery status
CPT/HCPCS: 45380; 45385; 88305; J2704; J7030

== ENCOUNTER → 2024-07-22 09:18 | Outpatient (BNVA) | payer OTHER, SELFPAY | PROVIDERS: PCP Family Medicine; Visit Provider Family Medicine | DX: R39.9 Unspecified symptoms and signs involving the genitourinary system (principal); R19.5 Other fecal abnormalities; Z12.5 Encounter for screening for malignant neoplasm of prostate | CPT/HCPCS: 80053; 81003; 83690; G0103 ==